=== PATIENT | male | born 1985 | race Caucasian/White ===

== ENCOUNTER 2017-01-29 14:15 | Emergency (ER) | payer OTHER ==
[~2017-01-29] VITALS: Ht 180.3 cm; Wt 64.4 kg
[~2017-01-29 14:15] MED LIST: CLINDAMYCIN HC150 MG ORAL; MEDICAL MARIJUANA; NKM
[2017-01-29 14:50] VITALS: BP 129/79
[2017-01-29] MEDS ORDERED: OCUFLOX5 ML OP (14:57)
[2017-01-29 15:11] VITALS: BP 129/79
--- NOTE | 2017-01-29 19:29 | Emergency Room Report ---
History of Present Illness General Chief Complaint: Eye Problems Source: Patient Present Illness HPI Patient is a 31-year-old male presenting with right eye redness and discharge which began yesterday. Pain is described as a 5/10 dull ache and is nonradiating. The patient denies any itching to the eye. The patient describes discharge as yellow and wakes up with crusting. Patient also admits to photophobia. The patient denies any other symptoms including nausea, vomiting, fever, chills, headache, dizziness, blurred vision Allergies: Coded Allergies: No Known Allergies (Unverified , 12/31/12) Patient History Past Medical History: see triage record Pertinent Family History: none Reviewed Nursing Documentation: PMH: Agreed, PSxH: Agreed Nursing Documentation-PMH Past Medical History: No Stated History Review of Systems All Other Systems: negative except mentioned in HPI Physical Exam Vital Signs Date Time Temp Pulse Resp B/P Pulse Ox O2 Delivery O2 Flow Rate FiO2 01/29/17 14:48 97.9 80 16 129/79 100 01/29/17 14:50 Room Air Sp02 EP Interpretation: reviewed, normal General Appearance: no apparent distress, alert, GCS 15, non-toxic Head: normocephalic, atraumatic Eyes: right eye Scleral Injection, bilateral eye PERRL, bilateral eye normal inspection ENT: hearing grossly normal, normal pharynx, no angioedema, normal voice Neck: full range of motion, supple/symm/no masses Respiratory: chest non-tender, lungs clear, normal breath sounds, speaking full sentences Musculoskeletal: back normal, gait/station normal, normal range of motion, non- tender Neurologic: alert, oriented x3, responsive, motor strength/tone normal, sensory intact, speech normal Psychiatric: judgement/insight normal, memory normal, mood/affect normal, no suicidal/homicidal ideation Skin: normal color, no rash, warm/dry, well hydrated Lymphatic: no adenopathy Medical Decision Making PA Attestation Dr. Rocha is my supervising physician. Patient management was discussed with my supervising physician Diagnostic Impression: Primary Impression: Bacterial conjunctivitis ER Course Patient is a 31-year-old male presenting with right eye redness and discharge which began yesterday Differential diagnoses considered but not limited to allergic conjunctivitis, bacterial conjunctivitis, viral conjunctivitis, blepharitis, hordeolum Physical exam: Vitals within normal limits. No current distress HEENT: Right eye conjunctival injection with yellow discharge. PERRL. EOMI. Otherwise exam is unremarkable The patient is discharged home with a prescription for Ocuflox and will be discharged home. Patient will follow up with PMD Last Vital Signs Date Time Temp Pulse Resp B/P Pulse Ox O2 Delivery O2 Flow Rate FiO2 01/29/17 15:11 97.9 80 16 129/79 100 Room Air Status: improved Disposition: HOME, SELF-CARE Condition: Improved Scripts Ofloxacin (OCUFLOX) 5 Ml Drops 2 DROP OP Q6HR, #5 ML Prov: ANNY MEYER 01/29/17 Referrals: JUAN RAMON RUSSELL M.D. (PCP) Patient Instructions: Bacterial Conjunctivitis Additional Instructions: I discussed my findings with the patient. All questions and concerns have been answered. Treatment and medication compliance have been addressed. I advised the patient that they need to follow up with PMD in 3-5 days. Return to ED if symptoms worsen, new symptoms arise, or if needed for any reason. Patient verbalized understanding of discharge instructions. ANNY MEYER Jan 29, 2017 19:29
== END 2017-01-29 15:11 | disposition home or self-care (01) ==
LOC: EMR 14:40
DX: H10.89 Other conjunctivitis (principal); H53.149 Visual discomfort, unspecified
CPT/HCPCS: 99283

== ENCOUNTER 2017-02-14 15:52 | Emergency (ER) | payer OTHER ==
[~2017-02-14] VITALS: Ht 167.6 cm; Wt 68.0 kg
[~2017-02-14 15:52] MED LIST changes: +OCUFLOX5 ML OP
[2017-02-14 15:55] VITALS: BP 120/65
[2017-02-14] MEDS ORDERED: Haloperidol 5mg/ml Inj IM ONE (16:00)
[2017-02-14] MEDS ORDERED: LORazepam Inj 2mg/ml 1ml IM ONE (16:00)
[2017-02-14] MEDS ORDERED: DiphenhydrAMINE 50mg/ml Inj IM ONE (16:00)
[2017-02-14 17:38] LABS: BASOPHILS % (AUTO) 1.8 % (0.0-2.0); EOSINOPHILS % (AUTO) 0.7 % (0.0-3.0); LYMPHOCYTES % (AUTO) 13.2 % (20.0-45.0); MEAN CORPUSCULAR HGB CONC 35.9 G/DL (32.0-36.0); MEAN CORPUSCULAR VOLUME 86 FL (80-99); MEAN PLATELET VOLUME 10.1 FL (6.5-10.1); MONOCYTES % (AUTO) 6.2 % (1.0-10.0); NEUTROPHILS % (AUTO) 78.1 % (45.0-75.0); PLATELET COUNT 208 K/UL (150-450); RED BLOOD COUNT 4.94 M/UL (4.70-6.10); RED CELL DISTRIBUTION WIDTH 11.5 % (11.6-14.8); WHITE BLOOD COUNT 9.8 K/UL (4.8-10.8)
[2017-02-14 18:05] LABS: ACETAMINOPHEN < 10 ug/mL (10-30); ALANINE AMINOTRANSFERASE 12 U/L (3-41); ALBUMIN/GLOBULIN RATIO 1.6 (1.0-2.7); ALCOHOL < 10 mg/dL; ANION GAP 25 (5-15); ASPARTATE AMINO TRANSFERASE 22 U/L (5-40); CALCIUM 9.5 mg/dL (8.6-10.2); CARBON DIOXIDE 20 mEQ/L (20-30); CHLORIDE 99 mEQ/L (98-107); CREATININE 1.4 mg/dL (0.7-1.2); GLOMERULAR FILTRATION RATE 58.7 mL/min (>60); HEMOLYSIS 27; POTASSIUM 4.1 mEQ/L (3.4-4.9); SODIUM 144 mEQ/L (135-145); TOTAL PROTEIN 7.8 g/dL (6.6-8.7)
[2017-02-14 19:00] VITALS: BP 105/61
--- NOTE | 2017-02-14 21:19 | Emergency Room Report ---
History of Present Illness General Chief Complaint: Behavioral Complaint Source: EMS Present Illness HPI The pt is a 31 yo M BIBA for acting bizarrely. The pt is not able to answer questions at this time as he is thrashing about and being nonsensical Allergies: Coded Allergies: No Known Allergies (Unverified , 12/31/12) Patient History Past Medical History: see triage record Pertinent Family History: unable to obtain Reviewed Nursing Documentation: PMH: Agreed, PSxH: Agreed Nursing Documentation-PMH Past Medical History: No Stated History History Of Psychiatric Problem: Yes - ADHD Review of Systems All Other Systems: negative except mentioned in HPI Physical Exam Vital Signs Date Time Temp Pulse Resp B/P Pulse Ox O2 Delivery O2 Flow Rate FiO2 02/14/17 15:48 98.4 110 20 120/65 99 Room Air Sp02 EP Interpretation: reviewed, normal General Appearance: no apparent distress, alert, GCS 15, non-toxic Head: normocephalic, atraumatic Eyes: bilateral eye PERRL, bilateral eye normal inspection ENT: hearing grossly normal, normal pharynx, no angioedema, normal voice Neck: full range of motion, supple/symm/no masses Respiratory: chest non-tender, lungs clear, normal breath sounds, no wheezing, speaking full sentences Cardiovascular #1: regular rate, rhythm, no edema Gastrointestinal: normal bowel sounds, non tender, soft, non-distended, no guarding, no rebound Rectal: deferred Genitourinary: normal inspection, no CVA tenderness Musculoskeletal: back normal, gait/station normal, normal range of motion, non- tender Neurologic: alert, motor strength/tone normal, sensory intact Psychiatric: anxious, other - + visual hallucinations Skin: normal color, no rash, warm/dry, well hydrated Lymphatic: no adenopathy Medical Decision Making PA Attestation Dr. Solano is my supervising physician. Patient management was discussed with my supervising physician Diagnostic Impression: Primary Impression: Substance abuse ER Course The pt is a 31 yo M BIBA from the street for acting bizarrely. DDx: psychosis, drug abuse, SI PE: Pt is initially tachycardic. Pt is thrashing about with all limbs and is verbally rambling nonsense. Non-compliant with exam. Head is NC/AT PERRL. Lungs CTA bilat. RRR. No MRG Appears disheveled. Due to the violent nature of the patient's movements, he has been medicated with Haldol, Benadryl, and Ativan. Pt is now resting comfortably in the gurney. LABS:No leukocytosis. BUN and Cr elevated UDS + for marijuana, Benzodiazepines, and amphetamines Dr. Diggs is consulted and has seen the patient the following morning. She states the patient is no danger to himself at this time and is suitable for discharge. Please see Dr. Diggs's note. The pt is A&Ox3 at time of DC. Labs Test 02/14/17 17:15 02/15/17 00:50 White Blood Count 9.8 K/UL (4.8-10.8) Red Blood Count 4.94 M/UL (4.70-6.10) Hemoglobin 15.3 G/DL (14.2-18.0) Hematocrit 42.7 % (42.0-52.0) Mean Corpuscular Volume 86 FL (80-99) Mean Corpuscular Hemoglobin 31.0 PG (27.0-31.0) Mean Corpuscular Hemoglobin Concent 35.9 G/DL (32.0-36.0) Red Cell Distribution Width 11.5 % (11.6-14.8) Platelet Count 208 K/UL (150-450) Mean Platelet Volume 10.1 FL (6.5-10.1) Neutrophils (%) (Auto) 78.1 % (45.0-75.0) Lymphocytes (%) (Auto) 13.2 % (20.0-45.0) Monocytes (%) (Auto) 6.2 % (1.0-10.0) Eosinophils (%) (Auto) 0.7 % (0.0-3.0) Basophils (%) (Auto) 1.8 % (0.0-2.0) Sodium Level 144 mEQ/L (135-145) Potassium Level 4.1 mEQ/L (3.4-4.9) Chloride Level 99 mEQ/L (98-107) Carbon Dioxide Level 20 mEQ/L (20-30) Anion Gap 25 (5-15) Blood Urea Nitrogen 37 mg/dL (7-23) Creatinine 1.4 mg/dL (0.7-1.2) Estimat Glomerular Filtration Rate 58.7 mL/min (>60) Glucose Level 111 mg/dL (74-106) Calcium Level 9.5 mg/dL (8.6-10.2) Total Bilirubin 0.9 mg/dL (0.0-1.2) Aspartate Amino Transf (AST/SGOT) 22 U/L (5-40) Alanine Aminotransferase (ALT/SGPT) 12 U/L (3-41) Alkaline Phosphatase 56 U/L (40-129) Total Protein 7.8 g/dL (6.6-8.7) Albumin 4.8 g/dL (3.5-5.2) Globulin 3.0 g/dL Albumin/Globulin Ratio 1.6 (1.0-2.7) Salicylates Level < 1 mg/dL (10-30) Acetaminophen Level < 10 ug/mL (10-30) Serum Alcohol < 10 mg/dL Urine Opiates Screen Negative (NEGATIVE) Urine Barbiturates Screen Negative (NEGATIVE) Phencyclidine (PCP) Screen Negative (NEGATIVE) Urine Amphetamines Screen Positive (NEGATIVE) Urine Benzodiazepines Screen Positive (NEGATIVE) Urine Cocaine Screen Negative (NEGATIVE) Urine Marijuana (THC) Screen Positive (NEGATIVE) Lab Results Impression No leukocytosis. BUN and Cr elevated UDS + for marijuana, Benzodiazepines, and amphetamines Last Vital Signs Date Time Temp Pulse Resp B/P Pulse Ox O2 Delivery O2 Flow Rate FiO2 02/14/17 15:48 98.4 110 20 120/65 99 Room Air Status: improved Disposition: HOME, SELF-CARE Condition: Improved Referrals: [facility] (PCP) ANNY MEYER Feb 14, 2017 21:19
[2017-02-14 23:00] VITALS: BP 110/65
[2017-02-15 02:30] VITALS: BP 115/70
[2017-02-15 05:00] VITALS: BP 107/72
[2017-02-15 08:36] VITALS: BP 112/70
[2017-02-15 10:36] VITALS: BP 114/69
[2017-02-15 10:39] VITALS: BP 114/69
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
== END 2017-02-15 10:40 | disposition home or self-care (01) ==
LOC: EDBD 15:52 → EMR 16:05
DX: F19.10 Other psychoactive substance abuse, uncomplicated (principal); Z86.59 Personal history of other mental and behavioral disorders; R00.0 Tachycardia, unspecified; F12.90 Cannabis use, unspecified, uncomplicated; F15.90 Other stimulant use, unspecified, uncomplicated
CPT/HCPCS: 36415; 80053; 80300; 80329; 85025; 96360; 96372; 99284; J1200; J1630

== ENCOUNTER 2018-12-14 19:55 | Inpatient (IN) | payer OTHER ==
[~2018-12-14] VITALS: Ht 177.8 cm; Wt 69.4 kg
[~2018-12-14 19:55] MED LIST changes: +VISTARIL25 M1 PO
[2018-12-14] MEDS ORDERED: ZYPREXA7.5 MG ORAL (20:04)
--- NOTE | 2018-12-14 20:25 | NUR ---
ER Nurse Note: Pt SKYLAR from [facility] c/o overdose on Zyprexa. Per EMS, pt unable to assess how much taken and when. Upon arrival, pt did not vomit, unable to respond to voice or light pain. Unable to assess pupils. Pt VSS eleated at triage. Pt was given narcan. ERMD at pt side; [facility]
--- NOTE | 2018-12-14 20:34 | NUR ---
ED Nurse Note: Spoke with Rosemary at Poison Control: Progressive sleepiness over 6-8 hours. Although Zyprexa does not depress respirations, the sleepiness will lead to an unprotected airway. As sleepiness progresses, BP drops, heart rate rises. If pt needs intubation, the patient cannot be extubated for for 24 hours. IV fluid boluses; if pressors are needed, use Levophed or Neosynephrine (beta). Zyprexa OD can cause seizures. Monitor: Q-T, K, Mg, Ca.
[2018-12-14 20:43] VITALS: BP 132/90
--- NOTE | 2018-12-14 21:04 | NUR ---
ER Nurse Note: Pt asleep; had two episodes of agression. Responds to sternal rub. NS being inflused. VSS elevated. Posion control notifed. Will continue to montior.
[2018-12-14 21:08] LABS: BASOPHILS % (AUTO) 1.4 % (0.0-2.0); EOSINOPHILS % (AUTO) 5.1 % (0.0-3.0); HEMATOCRIT 44.3 % (42.0-52.0); HEMOGLOBIN 14.7 G/DL (14.2-18.0); LYMPHOCYTES % (AUTO) 24.8 % (20.0-45.0); MEAN CORPUSCULAR VOLUME 86 FL (80-99); MONOCYTES % (AUTO) 5.3 % (1.0-10.0); NEUTROPHILS % (AUTO) 63.4 % (45.0-75.0); PLATELET COUNT 178 K/UL (150-450); RED BLOOD COUNT 5.13 M/UL (4.70-6.10); RED CELL DISTRIBUTION WIDTH 12.9 % (11.6-14.8); WHITE BLOOD COUNT 8.8 K/UL (4.8-10.8)
[2018-12-14 21:09] LABS: ANION GAP 8 mmol/L (5-15); BLOOD UREA NITROGEN 12 mg/dL (7-18); CALCIUM 9.1 MG/DL (8.5-10.1); CARBON DIOXIDE 29 MMOL/L (21-32); CHLORIDE 106 MMOL/L (98-107); CREATININE 0.9 MG/DL (0.55-1.30); POTASSIUM 3.4 MMOL/L (3.5-5.1); SODIUM 143 MMOL/L (136-145)
[2018-12-14 21:13] LABS: ALANINE AMINOTRANSFERASE 29 U/L (12-78); ALBUMIN 3.8 G/DL (3.4-5.0); ALBUMIN/GLOBULIN RATIO 1.2 (1.0-2.7); ALKALINE PHOSPHATASE 84 U/L (46-116); ASPARTATE AMINO TRANSFERASE 18 U/L (15-37); BILIRUBIN,TOTAL 0.2 MG/DL (0.2-1.0)
[2018-12-14 21:15] LABS: PHOSPHORUS 3.9 MG/DL (2.5-4.9)
[2018-12-14 21:45] VITALS: BP 124/86
[2018-12-14 22:45] VITALS: BP 105/77
--- NOTE | 2018-12-14 23:46 | Emergency Room Report ---
History of Present Illness General Chief Complaint: Overdose Source: EMS Present Illness HPI Patient is a 33-year-old male brought in by EMS from [facility]. Sober living facility. Patient had reportedly ingested unknown amount of olanzapine. Patient had recently filled tablets bottle of 15 mg and there were 32 remaining in the bottle. Ingestion occurred at unknown time.The patient had been given his usual psychiatric medications prior to ingestion. These included multiple sedative medications.Patient's allergies are unknown as is most of his other medical history but he has no previously prescribed medications for other problems. Allergies: Coded Allergies: No Known Allergies (Unverified , 10/14/18) Patient History Past Medical History: psych hx Reviewed Nursing Documentation: PMH: Agreed; PSxH: Agreed Nursing Documentation-PMH History Of Psychiatric Problem: Yes Review of Systems All Other Systems: limited - by mental status. Physical Exam Vital Signs Date Time Temp Pulse Resp B/P (MAP) Pulse Ox O2 Delivery O2 Flow Rate FiO2 12/14/18 19:57 98.1 112 18 132/90 100 Room Air Sp02 EP Interpretation: reviewed, normal General Appearance: no apparent distress, alert, other - somnolent but arousable, incoherent speech Head: atraumatic Eyes: bilateral eye PERRL ENT: normal ENT inspection, hearing grossly normal, normal voice Neck: normal inspection, full range of motion, supple, no bony tend Respiratory: normal inspection, lungs clear, normal breath sounds, no respiratory distress, no retraction, no wheezing Cardiovascular #1: regular rate, rhythm, no edema Gastrointestinal: normal inspection, normal bowel sounds, non tender, soft, no guarding, no hernia Genitourinary: no CVA tenderness Musculoskeletal: normal inspection, back normal, normal range of motion Neurologic: responsive, motor strength/tone normal, other - slow speech, somnolent Psychiatric: normal inspection, judgement/insight normal, mood/affect normal Skin: normal inspection, normal color, no rash Procedures Critical Care Time Critical Care Time Patient had a critical medical condition which untreated could potentially result in life or limb threatening injury. Total critical care time excluding procedures approximately 45 minutes. Medical Decision Making Diagnostic Impression: Primary Impression: Drug overdose ER Course . Patient presented for altered mental status. Differential diagnosis include was not limited to olanzapine overdose, polysubstance abuse, alcohol intoxication, intracranial hemorrhage among others. Because of complexity of patient's case laboratory testing and imaging studies were ordered. EKG interpreted by me showed sinus tachycardia with a rate of 115. QTc was noted to be somewhat prolonged at 470. Patient was started on IV fluids. Poison control was contacted for recommendations on management.Patient was noted to have continued somnolence and will be admitted to stepdown unit for further evaluation and monitoring of overdose.Dr. Davis Clements was contacted for inpatient management due to panel physician. Labs Test 12/14/18 20:20 12/14/18 20:30 White Blood Count 8.8 K/UL (4.8-10.8) Red Blood Count 5.13 M/UL (4.70-6.10) Hemoglobin 14.7 G/DL (14.2-18.0) Hematocrit 44.3 % (42.0-52.0) Mean Corpuscular Volume 86 FL (80-99) Mean Corpuscular Hemoglobin 28.7 PG (27.0-31.0) Mean Corpuscular Hemoglobin Concent 33.2 G/DL (32.0-36.0) Red Cell Distribution Width 12.9 % (11.6-14.8) Platelet Count 178 K/UL (150-450) Mean Platelet Volume 9.1 FL (6.5-10.1) Neutrophils (%) (Auto) 63.4 % (45.0-75.0) Lymphocytes (%) (Auto) 24.8 % (20.0-45.0) Monocytes (%) (Auto) 5.3 % (1.0-10.0) Eosinophils (%) (Auto) 5.1 % (0.0-3.0) Basophils (%) (Auto) 1.4 % (0.0-2.0) Sodium Level 143 MMOL/L (136-145) Potassium Level 3.4 MMOL/L (3.5-5.1) Chloride Level 106 MMOL/L (98-107) Carbon Dioxide Level 29 MMOL/L (21-32) Anion Gap 8 mmol/L (5-15) Blood Urea Nitrogen 12 mg/dL (7-18) Creatinine 0.9 MG/DL (0.55-1.30) Estimat Glomerular Filtration Rate > 60 mL/min (>60) Glucose Level 111 MG/DL (74-106) Calcium Level 9.0 MG/DL (8.5-10.1) Phosphorus Level 3.9 MG/DL (2.5-4.9) Magnesium Level 2.0 MG/DL (1.8-2.4) Total Bilirubin 0.2 MG/DL (0.2-1.0) Aspartate Amino Transf (AST/SGOT) 18 U/L (15-37) Alanine Aminotransferase (ALT/SGPT) 29 U/L (12-78) Alkaline Phosphatase 84 U/L (46-116) Total Protein 7.0 G/DL (6.4-8.2) Albumin 3.8 G/DL (3.4-5.0) Globulin 3.2 g/dL Albumin/Globulin Ratio 1.2 (1.0-2.7) Salicylates Level 3.6 ug/mL (2.8-20) Acetaminophen Level < 2 MCG/ML (10-30) Serum Alcohol < 3 mg/dL Urine Opiates Screen Negative (NEGATIVE) Urine Barbiturates Screen Negative (NEGATIVE) Phencyclidine (PCP) Screen Negative (NEGATIVE) Urine Amphetamines Screen Negative (NEGATIVE) Urine Benzodiazepines Screen Negative (NEGATIVE) Urine Cocaine Screen Negative (NEGATIVE) Urine Marijuana (THC) Screen Positive (NEGATIVE) Last Vital Signs Date Time Temp Pulse Resp B/P (MAP) Pulse Ox O2 Delivery O2 Flow Rate FiO2 12/14/18 22:45 98.1 90 13 105/77 98 Room Air Status: unchanged Disposition: ADMITTED INPATIENT Condition: Serious Referrals: [facility] (PCP) Calixto Carranza MD Dec 14, 2018 23:46
--- NOTE | 2018-12-15 | NUR ---
ER Nurse Note: Pt asleep; VSS, no signs of distress. No episodes of aggression unless woken up. Awaiting bed in SDU. Will continue to montior.
[2018-12-15 01:00] VITALS: BP 106/72
--- NOTE | 2018-12-15 01:16 | NUR ---
ER Nurse Note: Report given to KEY Velasquez to endorse continuity of care. Pt a&ox1, responds to pain; follows directions. Pt VSS, no signs of distress; no pain. Pt asleep, calm. All belongings taken with pt.
[2018-12-15 01:53] VITALS: BP 112/64
--- NOTE | 2018-12-15 01:53 | NUR ---
NURSE NOTES: Received pt from ER Via gurney. Pt able to slide from gurney to bed with no problem. Pt very sleepy but arousable to voice and touch. pt on room air at this time sat 98%. As per ER nurse pt able to void in urinal but occasionally urinates in bed. Left FA 18G IV site patent and intact. When asking patient questions he states "leave me alone" able to respond simple commands. Bed in lowest positions, side rails upx2 and padded at this time. Bed alarm on, room close to nurses station. Will continue to monitor.
--- NOTE | 2018-12-15 02:00 | NUR ---
NURSE NOTES: Called MD [facility] Clements for Admission orders, exchanged said they will send out a page for MD to call back. Charge nurse Sim gloria at this time.
--- NOTE | 2018-12-15 02:54 | NUR ---
NURSE NOTES: 2nd call was made to MD Clements exchange for admission orders. Awaiting call back
[2018-12-15 04:00] VITALS: BP 100/66
--- NOTE | 2018-12-15 05:00 | NUR ---
NURSE NOTES: Bed alarm sounded. Pt noted to get out of bed. Guided back to bed. Voided in urinal. Bed locked in lowest position and be alarm on.
--- NOTE | 2018-12-15 05:58 | NUR ---
NURSE NOTES: Called MD Clements exchange. 3rd attempt to get admission orders. Awaiting call back
--- NOTE | 2018-12-15 07:18 | NUR ---
HAND-OFF: Report given to Lachelle MACKEY Using SBAR.
--- NOTE | 2018-12-15 07:20 | NUR ---
NURSE NOTES: Received report from Lisa Anthony RN. Patient asleep in bed, responsive to name, uncooperative. On room air, respirations even and unlabored. Left AC 18g saline lock intact. Bed locked in lowest position with padded side rails up x 3. Bed alarm on. All needs attended to. Call light within reach. Will continue to monitor.
[2018-12-15 08:00] VITALS: BP 123/63
--- NOTE | 2018-12-15 08:00 | NUR ---
NURSE NOTES: Patient is more cooperative now, oriented to name, time and situation. Patient states taking "around 20 pills to be in a different state of mind" but denies suicidal ideations. Will continue to monitor.
--- NOTE | 2018-12-15 08:58 | Diagnostic Imaging Report ---
Indication: Altered mental status Technique: Continuous helical CT scanning of the head was performed without intravenous contrast material. Axial and coronal 5 mm sections were generated. Radiation dose was minimized using automated exposure control Dose: Total Dose Length Product - DLP 1393.[address] Dose Index - CTDIvol(s) 70.38 mGy. Comparison: none Findings: The ventricular system is normal in size and configuration. There is no shift of midline structures. No abnormal extra-axial fluid collections are noted. There is no evidence of intracerebral bleeding. No other abnormal high or low density areas are noted within the brain. There is ethmoid and sphenoid sinus mucosal disease. The mastoids are clear. The orbits are unremarkable. The calvarium is intact Impression: Normal CT scan of the head without contrast material. Incidental finding of minimal sinus disease This agrees with the preliminary interpretation provided overnight by [facility] teleradiology service. The CT scanner at [facility] is accredited by the [employer] and the scans are performed using protocols designed to limit radiation exposure to as low as reasonably achievable to attain images of sufficient resolution adequate for diagnostic evaluation.
[2018-12-15] MEDS ORDERED: Heparin 5000 units/ml inj SUBQ SCH ×2 (09:00→21:00)
--- NOTE | 2018-12-15 09:40 | NUR ---
Social Work This Sw received notification regarding possible overdose. This Sw met with patient who remains alert/oriented x3, making own decisions, independent with ADLs/ambulation. Patient explains he lives at [facility] sober living and planning to return there. Patient denied any depression or suicidal ideations. Patient admitted to visual hallucinations at times, with a possible diagnosis of Schizoaffective Disorder. Patient stating he took many medications "as a way to get into a different state of mind." Patient admitting to a history of Meth, Cocaine and Heroine addiction; denied that he has been using any of these substance, but still smoking marijuana daily. Pending Psychiatry/Dr. Diggs to evaluate.
--- NOTE | 2018-12-15 10:41 | Consultation ---
History of Present Illness General Date patient seen: Dec 15, 2018 Chief Complaint: Overdose Present Illness HPI 33-year-old male with hx of depression and drug abuse, living in a sober living brought in by EMS for ingestion of unknown amount of olanzapine. Pt was obtundent on arrival. ER nurse was unable to respond to voice or light pain. Pt was totally awake when I examined him. He just felt tired and wanted to get some rest. Allergies: Coded Allergies: No Known Allergies (Unverified , 10/14/18) Medication History Scheduled Hydroxyzine Pamoate (Vistaril), 25 MG PO Q8HR Olanzapine (Zyprexa), 7.5 MG ORAL DAILY, (Reported) Patient History Healthcare decision maker Resuscitation status Full Code Advanced Directive on File Past Medical/Surgical History Past Medical/Surgical History: (1) Depression (2) Anxiety Review of Systems All Other Systems: negative except mentioned in HPI Physical Exam General Appearance: WD/WN Lines, tubes and drains: peripheral HEENT: normocephalic, atraumatic Neck: non-tender, normal alignment, abnormal alignment Respiratory/Chest: chest wall non-tender, lungs clear Breasts: no masses Cardiovascular/Chest: normal rate Abdomen: normal bowel sounds, non tender Genitourinary/Rectal: heme negative stool Extremities: normal range of motion, non-tender Skin Exam: normal pigmentation Last 24 Hour Vital Signs Date Time Temp Pulse Resp B/P (MAP) Pulse Ox O2 Delivery O2 Flow Rate FiO2 12/15/18 08:00 97.9 96 22 123/63 (83) 99 12/15/18 08:00 87 12/15/18 08:00 Room Air 12/15/18 04:00 98.3 82 12 100/66 (77) 99 12/15/18 04:00 89 12/15/18 04:00 Room Air 12/15/18 02:07 78 12/15/18 02:00 Room Air 12/15/18 01:53 98.1 82 12 112/64 (80) 98 12/15/18 01:30 98.0 78 12 106/72 98 Room Air 12/15/18 01:00 98.0 78 12 106/72 98 Room Air 12/14/18 22:45 98.1 90 13 105/77 98 Room Air 12/14/18 21:45 98.0 100 16 124/86 100 Room Air 12/14/18 20:43 112 18 Room Air 12/14/18 20:43 98.1 112 18 132/90 100 Room Air 12/14/18 19:57 98.1 112 18 132/90 100 Room Air Intake and Output 12/14/18 12/15/18 18:59 06:59 Intake Total 2000 ml Output Total 400 ml Balance 1600 ml Intake IV Total 2000 ml Output Urine Total 400 ml # Voids 1 Laboratory Tests Test 12/14/18 20:20 12/14/18 20:30 White Blood Count 8.8 K/UL (4.8-10.8) Red Blood Count 5.13 M/UL (4.70-6.10) Hemoglobin 14.7 G/DL (14.2-18.0) Hematocrit 44.3 % (42.0-52.0) Mean Corpuscular Volume 86 FL (80-99) Mean Corpuscular Hemoglobin 28.7 PG (27.0-31.0) Mean Corpuscular Hemoglobin Concent 33.2 G/DL (32.0-36.0) Red Cell Distribution Width 12.9 % (11.6-14.8) Platelet Count 178 K/UL (150-450) Mean Platelet Volume 9.1 FL (6.5-10.1) Neutrophils (%) (Auto) 63.4 % (45.0-75.0) Lymphocytes (%) (Auto) 24.8 % (20.0-45.0) Monocytes (%) (Auto) 5.3 % (1.0-10.0) Eosinophils (%) (Auto) 5.1 % (0.0-3.0) H Basophils (%) (Auto) 1.4 % (0.0-2.0) Sodium Level 143 MMOL/L (136-145) Potassium Level 3.4 MMOL/L (3.5-5.1) L Chloride Level 106 MMOL/L (98-107) Carbon Dioxide Level 29 MMOL/L (21-32) Anion Gap 8 mmol/L (5-15) Blood Urea Nitrogen 12 mg/dL (7-18) Creatinine 0.9 MG/DL (0.55-1.30) Estimat Glomerular Filtration Rate > 60 mL/min (>60) Glucose Level 111 MG/DL (74-106) H Calcium Level 9.0 MG/DL (8.5-10.1) Phosphorus Level 3.9 MG/DL (2.5-4.9) Magnesium Level 2.0 MG/DL (1.8-2.4) Total Bilirubin 0.2 MG/DL (0.2-1.0) Aspartate Amino Transf (AST/SGOT) 18 U/L (15-37) Alanine Aminotransferase (ALT/SGPT) 29 U/L (12-78) Alkaline Phosphatase 84 U/L (46-116) Total Protein 7.0 G/DL (6.4-8.2) Albumin 3.8 G/DL (3.4-5.0) Globulin 3.2 g/dL Albumin/Globulin Ratio 1.2 (1.0-2.7) Salicylates Level 3.6 ug/mL (2.8-20) Acetaminophen Level < 2 MCG/ML (10-30) L Serum Alcohol < 3 mg/dL Urine Opiates Screen Negative (NEGATIVE) Urine Barbiturates Screen Negative (NEGATIVE) Phencyclidine (PCP) Screen Negative (NEGATIVE) Urine Amphetamines Screen Negative (NEGATIVE) Urine Benzodiazepines Screen Negative (NEGATIVE) Urine Cocaine Screen Negative (NEGATIVE) Urine Marijuana (THC) Screen Positive (NEGATIVE) H Microbiology Date/Time Source Procedure Growth Status 12/14/18 22:20 Rectum Received Height (Feet): 5 Height (Inches): 10.00 Weight (Pounds): 153 Medications Current Medications Medications (Trade) Dose Ordered Sig/Ezra Route PRN Reason Start Time Stop Time Status Last Admin Dose Admin Heparin Sodium (Porcine) (Heparin 5000 units/ml) 5,000 units EVERY 12 HOURS SUBQ 12/15/18 09:00 01/14/19 08:59 12/15/18 09:03 Potassium Chloride 100 ml @ 100 mls/hr Q1H IVPB 12/15/18 10:30 12/15/18 14:29 12/15/18 10:08 Sodium Chloride 1,000 ml @ 50 mls/hr Q20H IV 12/15/18 09:00 01/14/19 08:59 12/15/18 09:03 Assessment/Plan Problem List: (1) Acute metabolic encephalopathy ICD Codes: G93.41 - Metabolic encephalopathy SNOMED: 99170431, 016863041 (2) Drug overdose ICD Codes: T50.901A - Poisoning by unspecified drugs, medicaments and biological substances, accidental (unintentional), initial encounter SNOMED: 54881804 (3) Anxiety ICD Codes: F41.9 - Anxiety disorder, unspecified SNOMED: 16520023 (4) Depression ICD Codes: F32.9 - Major depressive disorder, single episode, unspecified SNOMED: 00533495 Assessment/Plan symptomatic management Banana bag check electrolytes pt can be moved to a medical floor. Gabby Shelton MD Dec 15, 2018 10:41
--- NOTE | 2018-12-15 11:33 | NUR ---
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 98.0 HR 112 RR 18 B/P 132/90 K 3.4 URINE TOX + THC HEAD CT= NORMAL IS: IV BOLUS NS X 1 LITER ADMITTED TO TELE@ [id number] TELE STATUS DCP RETURN HOME
[2018-12-15 12:00] VITALS: BP 105/65
[2018-12-15] MEDS ORDERED: Folic Acid 1 MG, Magnesium Sulfate 2,000 MG, Multivitamin - 12 Injection 10 ML in Sodiu... IV SCH ×2 (12:00→13:00)
[2018-12-15] MEDS ORDERED: Thiamine 100mg in D5W 55ml IVPB SCH (12:00)
--- NOTE | 2018-12-15 12:22 | NUR ---
NURSE NOTES: Patient c/o of tenderness on left AC peripheral IV site due to KCl infusion. When infusion is turned off, patient states that pain stops. Infusion restarted at a slower rate but patient still c/o pain on IV site. New IV started on right hand 20g. Left AC 18g IV site removed per patient's request. At this time, patient refuses to continue IV fluids. Provided health teachings regarding benefits of continued IV infusion, plan of care and risks and consequences of not receiving prescribed medications. Patient verbalized understanding but still refused IV fluids. Respected patient's wishes and held IV fluids at this time. Will continue to monitor and try to encourage patient at a later time.
[2018-12-15] MEDS ORDERED: Thiamine HCl 100 MG in D5W 55 ML IVPB SCH (13:00)
[2018-12-15] MEDS ORDERED: BusPIRone 5mg Tab ORAL SCH ×2 (13:00→18:00)
[2018-12-15] MEDS ORDERED: ALPRAZolam 0.5mg tab ORAL SCH ×3 (13:00→18:00)
--- NOTE | 2018-12-15 13:00 | NUR ---
TRANSFER TO FLOOR: Patient transferred to med-surg room 411-1, per Dr. Shelton. Report given to [place] RN. Belongings and medications given to receiving nurse.
--- NOTE | 2018-12-15 13:16 | NUR ---
NURSE NOTES: Report received from KEY Panda. PT in bed awake, resting, talkative, no complaints of pain, stated he is feeling anxiety, will check medications and continue to monitor, bed in lowest position, call light within reach.
--- NOTE | 2018-12-15 13:25 | NUR ---
NURSE NOTES: Asked Dr. Shelton for PRN anxiety medication. Dr. Shelton ordered Xanax 0.5 mg PO once, order entered
--- NOTE | 2018-12-15 13:42 | NUR ---
NURSE NOTES: Dr. Shelton stated pt is to be discharged tonight. Notified Dr. Shelton that pt has not yet been seen by Dr. Shen, asked about proceeding with DC. Dr. Shelton stated pt did not need to be seen by Dr. Shen prior to discharge.
[2018-12-15 16:00] VITALS: BP 101/67
[2018-12-15] MEDS ORDERED: 1/2 NS 1000ml IV ONE (16:32)
[2018-12-15] MEDS ORDERED: Tubing IV Secondary IV ONE ×2 (16:32→17:59)
[2018-12-15] MEDS ORDERED: NS 275ml ONE (16:32)
--- NOTE | 2018-12-15 18:22 | NUR ---
NURSE NOTES: Pt discharged with all belongings, given a shirt to wear home as his shirt was soiled, IV removed, ID band removed. Pt stable for discharge
--- NOTE | 2018-12-15 19:15 | History and Physical Report ---
DATE OF ADMISSION: 12/14/2018 TIME: 11 a.m. CONSULTANTS: 1. Gabby Shelton M.D. 2. Davion Shen M.D. CHIEF COMPLAINT: Zyprexa overdose. BRIEF HISTORY: This is a 33-year-old male, who is living currently at [facility]. He apparently drank bottles of Zyprexa, but not sure how much. The patient came to [place], diagnosed with the above, was very lethargic and weak, and admitted to [facility] for further care. Currently, calm in bed. No complaint. No chest pain. No shortness of breath. No nausea, vomiting, or diarrhea. PAST MEDICAL HISTORY: Includes depression. PAST SURGICAL HISTORY: None. MEDICATIONS: Include Xanax, BuSpar, folic acid, thiamine, potassium, IV fluids. ALLERGIES: Denies. SOCIAL HISTORY: No smoke. No alcohol. No intravenous drug abuse. Positive marijuana use. PHYSICAL EXAMINATION: GENERAL: Calm in bed, oriented x3, no acute distress. VITAL SIGNS: Shows temperature is 97 degrees, pulse 96, respirations 22, and blood pressure 122/63. CARDIOVASCULAR: No murmur. LUNGS: Distant clear. ABDOMEN: Bowel sounds positive. Nontender. Nondistended. EXTREMITIES: Show no cyanosis or edema. NEUROLOGIC: The patient moves all extremities, slightly weak. LABORATORY AND DIAGNOSTIC DATA: Labs at this time show CBC is normal. BMP; potassium 3.4, glucose 111, otherwise BMP is normal. Urine tox,Tylenol less than 3, positive for marijuana, otherwise normal. ASSESSMENT: 1. Zyprexa overdose. 2. Depression. PLAN: 1. CBC and BMP in the morning. 2. . 3. Psych treatment. 4. We will continue to follow the patient. Davis Clements D.O. DR: JOSY JOB#: [id number] CC:
--- NOTE | 2018-12-15 22:08 | Discharge Summary ---
Discharge Summary Discharge Summary _ DATE OF ADMISSION: 12/14/2018 DATE OF DISCHARGE: 12/15/2018 DISCHARGED BY: Dr. Clements REASON FOR ADMISSION: 33 years old male with history of depression and drug abuse, who lives in a sober facility, was brought to emergency department for evaluation. Patient reportedly ingested unknown amount of olanzapine. Upon evaluation vital signs revealed tachycardia with heart rate 112, pulse oximetry was stable on room air. Patient appeared to be somnolent but arousable with incoherent speech. Laboratory workup revealed no leukocytosis, stable hemoglobin and hematocrit. Potassium 3.4. BUN 12 creatinine 0.9. Stable LFT. Serum salicylate, alcohol and Tylenol were all negative. Urine toxicology screen was positive for marijuana. EKG revealed prolonged QT interval at 470. Patient was started on the IV fluids. Poison control center was contacted for recommendation of management. Patient continued to be somnolent and was subsequently admitted to [facility] for further evaluation and management. CONSULTANTS: rose marie Shelton [facility] COURSE: Patient started on symptomatic treatment. Patient received IV fluids with electrolytes. Mental status was closely monitored. Potassium was replaced. DVT prophylaxis provided. Patient condition slowly improved , and he subsequently subsequently was transferred to medical floor. Hemodynamic status remained stable. Vital signs reveal remained stable, tachycardia resolved. Pulse oximetry was stable on room air. Mental status slowly improved. Patient was stable for discharged back to skilled facility. Patient was counseled on strict compliance with medication dosing and avoid ingesting unknown amount of pills. Outpatient follow-up with psychiatrist recommended. Due to rapid and unexpected improvement in patient condition, patient was discharged in 1 day. FINAL DIAGNOSES: Acute toxic encephalopathy due to drug overdose Drug overdose with Zyprexa Depression Anxiety DISCHARGE MEDICATIONS: See Medication Reconciliation list. DISCHARGE INSTRUCTIONS: Patient was discharged to sober living. Recommended outpatient follow-up with psychiatrist. I have been assigned to dictate discharge summary for this account. I was not involved in the patient's management. Maria T Galloway NP Dec 15, 2018 22:08
--- NOTE | 2018-12-16 08:28 | NUR ---
CASE MANAGEMENT: CM review and clinical information (face sheet/DC summary/ ER MD Note/ H&P) faxed to [facility] @ [phone] [facility] @ [phone]
--- NOTE | 2018-12-17 11:12 | Cardiology Report ---
APPROVED REPORT EKG Measurement Heart [id number] Suspect arm lead reversal, interpretation assumes no reversal Sinus tachycardia Rightward axis Borderline ECG
== END 2018-12-15 18:00 | disposition home or self-care (01) | DRG 812 ==
LOC: EDBD 19:55 → EDUNIT# 19:55 → EMR 20:30 → EDBD 21:46 → 2W 21:46 → MERGE 21:46 → EDBEDREQTM 23:36 → EDBEDREQ 23:36 → EDBEDREQSVC 23:36 → EDBEDREQ 23:38 → 4E 12-15 12:58
DX: T43.591A Poisoning by other antipsychotics and neuroleptics, accidental (unintentional), initial encounter (principal); G92 Toxic encephalopathy; F32.9 Major depressive disorder, single episode, unspecified; F41.9 Anxiety disorder, unspecified; F19.10 Other psychoactive substance abuse, uncomplicated; Y92.049 Unspecified place in boarding-house as the place of occurrence of the external cause
CPT/HCPCS: 36415; 70450; 80053; 80307; 80329; 82310; 83735; 84100; 85025; 87081; 93005; 96360; 99291

== ENCOUNTER 2019-02-27 02:05 | Emergency (ER) | payer OTHER ==
[~2019-02-27] VITALS: Ht 185.4 cm; Wt 77.1 kg
[~2019-02-27 02:05] MED LIST changes: +ZYPREXA7.5 MG ORAL
[2019-02-27] MEDS ORDERED: TRAZODONE HCL150 MG ORAL (02:08)
--- NOTE | 2019-02-27 02:15 | NUR ---
ED Nurse Note: pt brought in by [facility] from drug rehab c/c unable to sleep x 3days and anxiety, pt states he did crystal meth for three days and states he has been hallucinating, seeing shadows. pt AA&ox4, gcs=15, anxious, skin warm and dry, resp even and unlabored on RA, -n/v/d, ambulates w/ steady gait, denies SI/HI at this time, +VH but denies AH. will cont monitor.
[2019-02-27 02:25] VITALS: BP 122/76
[2019-02-27] MEDS ORDERED: Haloperidol 5mg/ml Inj IM ONE ×2 (02:45→03:00)
--- NOTE | 2019-02-27 02:48 | Emergency Room Report ---
History of Present Illness General Chief Complaint: Behavioral Complaint Source: Patient, EMS Present Illness HPI Is a 33-year-old male with a history of anxiety. He lives in sober living. He presents with chief complaint of unable to sleep and feeling anxious. He said his been using meth for the last 3 day. Dante anxious. Dante like he seeing things. No nausea no vomiting. No suicidal thoughts or homicidal thought. Similar symptom in the past. Came by to 911. Allergies: Coded Allergies: No Known Allergies (Unverified , 12/31/12) UNABLE TO ASSESS (Unverified , 11/30/17) Patient History Past Medical History: see triage record, old chart reviewed, psych hx Past Surgical History: other Family History: none Social History: drug use Immunizations: other Reviewed Nursing Documentation: PMH: Agreed; PSxH: Agreed Nursing Documentation-PMH Past Medical History: No History, Except For History Of Psychiatric Problem: Yes - BIPOLAR ANXIETY SCHIZ Review of Systems ENT: Denies: sore throat Cardiovascular: Denies: chest pain, palpitations Gastrointestinal/Abdominal: Denies: nausea, vomiting, diarrhea Musculoskeletal: Denies: back problems Skin: Denies: rash Psychiatric: Reports: anxiety Neurological: Denies: GARCIA, seizures All Other Systems: negative except mentioned in HPI Physical Exam Vital Signs Date Time Temp Pulse Resp B/P (MAP) Pulse Ox O2 Delivery O2 Flow Rate FiO2 02/27/19 02:01 97.3 125 22 122/76 100 Room Air vitals with tachycardia Sp02 EP Interpretation: reviewed, normal General Appearance: alert/responsive, no apparent distress, non-toxic Head: normocephalic, atraumatic Eyes: PERRL, EOMI ENT: oropharynx normal Neck: supple/symm/no masses Respiratory: effort normal, no rhonchi, no wheezing Cardiovascular: no murmur, gallop, rub Gastrointestinal: non-tender, no mass, non-distended, no rebound/guarding, normal bowel sounds Musculoskeletal: gait & station normal Neurologic: oriented x3, sensory intact, motor strength/tone normal Psychiatric: anxious Skin: no rash, normal palpation Medical Decision Making Diagnostic Impression: Primary Impression: Anxiety Additional Impression: Substance abuse ER Course Patient with anxiety/panic attack and psychosis secondary to drug abuse. Better after Haldol. Sleeping comfortably now. We'll discharge in the morning. Not suicidal or homicidal. No criteria for 5150. This patient is a chronic risk of self injury due to poor impulse control, limited coping skills, and judgment intermittently impaired by intoxication. I believe that the available clinical evidence to suggest that these characteristics derived primarily from personality disorder and are likely very stable over time. Hospitalization would likely attenuate risk of self-harm only during long term period, without lasting risk reduction. Serious self-harm , while possible, would likely be inadvertent, and because of impulsivity, and foreseeable. For these reasons, I do not believe hospitalization would provide meaningful reduction in risk of self-harm. Last Vital Signs Date Time Temp Pulse Resp B/P (MAP) Pulse Ox O2 Delivery O2 Flow Rate FiO2 02/27/19 02:25 97.3 124 22 122/76 100 Room Air Status: improved Disposition: HOME, SELF-CARE Condition: Stable Patient Instructions: Self-Destructive Behavior Additional Instructions: Stop using drugs. Go to rehabilitation. Follow-up with your doctor in 7 days. Return if worse. John Wilder MD Feb 27, 2019 02:48
[2019-02-27] MEDS ORDERED: DiphenhydrAMINE 50mg/ml Inj IM ONE (03:00)
--- NOTE | 2019-02-27 03:01 | NUR ---
ED Nurse Note: report given to charge nurse Agnes and endorsed care.
--- NOTE | 2019-02-27 03:07 | NUR ---
ED Nurse Note: Received. Pt continues to scream loudly for help, "I'm dying"; Pt teaching attempted. Pt has been given a total of Haldol 10mg IM and Benadryl.
--- NOTE | 2019-02-27 03:30 | NUR ---
ED Nurse Note: Pt quieting - drowsy.
[2019-02-27 04:15] VITALS: BP 126/87
--- NOTE | 2019-02-27 04:15 | NUR ---
ED Nurse Note: Awakened for vitals - stable - returned to sleep.
[2019-02-27 06:10] VITALS: BP 114/78
[2019-02-27 07:26] VITALS: BP 114/78
--- NOTE | 2019-02-27 07:27 | NUR ---
ER DISCHARGE NOTE: Patient is cleared to be discharged per ERMD, pt is aox4, on room air, with stable vital signs. pt was given dc instructions, pt was able to verbalize understanding, pt is able to ambulate with steady gait and family member. pt took all belongings.
== END 2019-02-27 07:30 | disposition home or self-care (01) ==
LOC: EDBD 02:05 → EMR 02:43
DX: F41.9 Anxiety disorder, unspecified (principal); F15.10 Other stimulant abuse, uncomplicated; F31.9 Bipolar disorder, unspecified; F20.9 Schizophrenia, unspecified
CPT/HCPCS: 96372; 99284; J1200; J1630